=== PATIENT | female | born 1955 | race Caucasian/White ===

== ENCOUNTER 2024-03-02 11:39 | Outpatient (CLI) | payer BC, SELFPAY | END 2024-03-02 11:40 | disposition home or self-care (01) | PROVIDERS: Visit Provider Physician Assistant Medical | DX: I10 Essential (primary) hypertension (principal); Z13.220 Encounter for screening for lipoid disorders; Z13.29 Encounter for screening for other suspected endocrine disorder | CPT/HCPCS: 80053; 80061; 84443 ==

== ENCOUNTER 2024-03-25 11:07 | Outpatient (CLI) | payer BC, SELFPAY ==
--- NOTE | 2024-03-25 11:30 | CRLHL7_ITS ---
For Patients: As a result of the Century Cures Act, medical imaging exams and procedure reports are released immediately into your electronic medical record. You may view this report before your referring provider. If you have questions, please contact your health care provider. BILATERAL DIGITAL SCREENING MAMMOGRAM WITH COMPUTER-AIDED DETECTION AND TOMOSYNTHESIS CLINICAL HISTORY: Routine screening exam. COMPARISON: 04/28/18, 02/13/17, 02/12/16. TECHNIQUE: Digital mammogram in CC and MLO projections including computer-aided detection (CAD). Tomosynthesis was used in this interpretation. BREAST COMPOSITION: There are areas of scattered fibroglandular density. FINDINGS: RIGHT Breast: Focal asymmetric density upper outer quadrant 7 cm from the nipple. LEFT Breast: No suspicious findings. IMPRESSION: RIGHT breast asymmetry/mass. RECOMMENDATIONS: Additional mammographic views of the RIGHT breast including 3D spot compression CC/MLO. RIGHT breast ultrasound may also be required. BI-RADS Category 0: Incomplete: Need Additional Imaging Evaluation and/or Prior Mammograms for Comparison [facility] will contact the patient for follow-up. A lay language report of this examination will be provided to the patient. Dictated by Arden Albright MD @ 03/26/2024 12:20:06 PM hiroj/Dictated by: Arden Albright MD @ 03/26/2024 12:20:00 PM (Electronically Signed)
== END 2024-03-25 11:08 | disposition home or self-care (01) ==
LOC: MAMMO 11:08
PROVIDERS: Visit Provider Physician Assistant Medical
DX: Z12.31 Encounter for screening mammogram for malignant neoplasm of breast (principal); N63.10 Unspecified lump in the right breast, unspecified quadrant
CPT/HCPCS: 77063; 77067

== ENCOUNTER 2024-04-07 09:14 | Outpatient (RCR) | payer BC, SELFPAY | END 2024-04-20 14:39 | disposition home or self-care (01) | PROVIDERS: PCP Physician Assistant Medical; Visit Provider Orthopaedic Surgery Sports Medicine | DX: M16.11 Unilateral primary osteoarthritis, right hip (principal); Z96.641 Presence of right artificial hip joint; R52 Pain, unspecified; R53.1 Weakness; R26.9 Unspecified abnormalities of gait and mobility; R26.81 Unsteadiness on feet; Z51.89 Encounter for other specified aftercare | CPT/HCPCS: 97162; 97535 ==

== ENCOUNTER 2024-04-23 09:18 | Outpatient (CLI) | payer BC, SELFPAY ==
--- NOTE | 2024-04-23 09:15 | CRLHL7_ITS ---
For Patients: As a result of the 21st Century Cures Act, medical imaging exams and procedure reports are released immediately into your electronic medical record. You may view this report before your referring provider. If you have questions, please contact your health care provider. BILATERAL BREAST MRI WITHOUT AND WITH GADOLINIUM CLINICAL HISTORY: 68-year-old patient newly diagnosed with RIGHT breast invasive lobular carcinoma, grade II on 04/06/2024 by ultrasound-guided needle core biopsy with clip placement. Located at the RIGHT 9 o`clock location, 7 cm from the nipple and associated with 1.8 cm irregular hypoechoic mass with spiculated margins. Family history of maternal grandmother with breast cancer in her 40s. INDICATION FOR BREAST MRI: Staging of newly diagnosed breast cancer and screening of contralateral breast. Regional lymph nodes will also be assessed. COMPARISON STUDIES: Mammogram 03/25/2024. Mammogram and ultrasound 04/06/2024. CONTRAST: 23 mL Dotarem. TECHNIQUE: The patient was positioned prone using a breast coil. Multiple imaging sequences were obtained using 1-1.5 mm thick slices with no gap. The image sequences include T2-weighted STIR in the axial plane, T1-weighted nonfat-saturated gradient echo in the axial plane, pre- and post-contrast T1-weighted FLASH 3D with fat suppression in the axial plane, and T1-weighted FLASH high resolution 3D with fat suppression in the sagittal plane. Image post-processing was performed on a [employer] workstation. Complex 3D rendering including maximum intensity projections (MIPS) and volumetric renderings were obtained to optimize visualization of the extent of pathology and relationship to the nipple, skin, and chest wall. This aids in determining feasibility of breast conservation surgery. Subtraction, multiplanar reconstruction, mean curve determination, and angiogenesis mapping were also performed. The study was technically adequate. FINDINGS: Amount of Fibroglandular Tissue: Scattered fibroglandular tissue. Breast Background Enhancement: Mild RIGHT Breast: RIGHT 9 o`clock, 7 cm from the nipple: 2.7 x 1.9 x 1.8 cm heterogeneously enhancing mass. Biopsy clip artifact is noted along the anterolateral aspect of the mass. Enhancement is heterogeneous, including initial rapid uptake with delayed washout kinetics. There is enhancement along the lateral aspect of the mass extending to the skin representing post biopsy changes, which somewhat limits accurate measurement of the biopsy-proven carcinoma. LEFT Breast: No suspicious mass or non-mass enhancement. Lymph Nodes: No axillary or internal mammary lymphadenopathy. Other Findings: None. IMPRESSIONS AND RECOMMENDATIONS: 1. Unifocal biopsy-proven carcinoma RIGHT 9 o`clock, 7 cm from the nipple. 2. Carcinoma measures approximately 2.7 x 1.9 x 1.8 cm on MRI, however there is enhancement along the lateral aspect of the mass extending to the skin, representing post biopsy changes. The post biopsy enhancement somewhat limits accurate measurement of the biopsy-proven carcinoma. BI-RADS Category 6: Known biopsy-proven malignancy Dictated by Elizabeth Tam MD @ 04/26/2024 10:35:48 AM j/Dictated by: Elizabeth Tam MD @ 04/26/2024 11:11:00 AM (Electronically Signed)
== END 2024-04-23 09:19 | disposition home or self-care (01) ==
PROVIDERS: PCP Physician Assistant Medical; Visit Provider Surgery
DX: C50.812 Malignant neoplasm of overlapping sites of left female breast (principal)
CPT/HCPCS: 77049; A9575

== ENCOUNTER 2024-05-04 10:04 | Day surgery (SDC) | payer BC, SELFPAY ==
[2024-05-04] VITALS (11 sets, daily range): BP systolic 149–188; BP diastolic 70–100; PULSE 73–84; RESP 16–20; TEMP 36.3–36.6; O2SAT 96–99; BMI 43.2
[2024-05-04] MEDS: SODIUM CHLORIDE 0.9 % (FLUSH) 10 ML SYRINGE IVF (09:05)
--- NOTE | 2024-05-04 11:30 | CRLHL7_ITS ---
For Patients: As a result of the Century Cures Act, medical imaging exams and procedure reports are released immediately into your electronic medical record. You may view this report before your referring provider. If you have questions, please contact your health care provider. INDICATION: Right-sided breast cancer. TECHNIQUE: 0.5 millicuries of technetium-99m labeled filtered sulfur colloid was placed in the deep dermis of the right breast. Findings: After sterile technique and 1 cc of 1 percent lidocaine, a small injection of filtered sulfur colloid has been placed in the deep dermis of the right breast. No images have been obtained. IMPRESSION: Successful sentinel lymph node localization injection right breast. Dictated by Charlie Perez MD @ 05/05/2024 8:01:52 AM (Electronically Signed)
--- NOTE | 2024-05-04 11:34 | SUR.PREOP ---
Pt taken by nurse navigator, Fany, to breast center for wire localization placement.
--- NOTE | 2024-05-04 11:45 | CRLHL7_ITS ---
For Patients: As a result of the Cures Act, medical imaging exams and procedure reports are released immediately into your electronic medical record. You may view this report before your referring provider. If you have questions, please contact your health care provider. BREAST WIRE LOCALIZATION USING ULTRASOUND GUIDANCE CLINICAL HISTORY: RIGHT breast carcinoma. LATERALITY: RIGHT. LESION: Hypoechoic previously biopsied mass containing a clip. LOCALIZATION WIRE: [place] hookwire. TECHNIQUE: The localization wire was placed using real-time ultrasound guidance with image documentation. Cranial-caudal and medial-lateral digital mammograms were obtained after localization wire placement. CONSENT and TIME OUT: The procedure, risks, and alternatives were explained to the patient and a consent was signed. [place] Protocol was followed including pre-procedure verification that relevant information/documentation was available, reviewed and properly matched to the patient; consent accurate and complete; and equipment and supplies available. Time Out was conducted just prior to starting procedure to verify the four required elements: patient identity, correct side/site marked (if applicable), procedure, relevant images/results properly labeled and displayed (if applicable). PROCEDURE: The skin was prepped with ChloraPrep and 10 cc of 1% lidocaine was injected for local anesthesia. The localization wire was placed within or near the targeted breast lesion using ultrasound guidance. The patient tolerated the procedure well. PROXIMITY OF WIRE TO LESION: Within the lesion adjacent to the clip. IMPRESSION: Successful breast wire localization. ACR not applicable Dictated by Arden Albright MD @ 05/04/2024 12:56:58 PM hiroj/Dictated by: Arden Albright MD @ 05/04/2024 12:56:00 PM (Electronically Signed)
--- NOTE | 2024-05-04 12:29 | SUR.PREOP ---
Dr. Licea and [employer] in room to do injection
--- NOTE | 2024-05-04 12:30 | CRLHL7_ITS ---
For Patients: As a result of the Century Cures Act, medical imaging exams and procedure reports are released immediately into your electronic medical record. You may view this report before your referring provider. If you have questions, please contact your health care provider. PLEASE SEE ULTRASOUND-GUIDED RIGHT BREAST WIRE LOCALIZATION DONE SAME DAY CRL:clemente cornejo/Dictated by: Arden Albright MD @ 05/04/2024 12:20:00 PM (Electronically Signed)
--- NOTE | 2024-05-04 12:34 | W.PM.H&PU ---
History & Physical Update History & Physical Update H&P Reviewed and patient assessed: No changes noted
--- NOTE | 2024-05-04 13:06 | P.GSOP_ITS ---
Operative Note Date of procedure: 05/04/24 Pre-op diagnosis: 1. Right breast invasive lobular carcinoma, ER/OR positive and HER2 negative. Post-op diagnosis: Same Type of Procedure: 1. Wire localized right lumpectomy. 2. Right sentinel lymph node biopsy. Indications: 68-year-old female was seen in clinic for evaluation of a new diagnosis of right breast invasive lobular carcinoma. Patient was found to have a spiculated hypoechoic mass in the right breast at 9:00 7 cm from the nipple that was measuring 1.8 x 1.2 cm. Patient's pathology came back as invasive lobular carcinoma, grade 2 of 3 with no angiolymphatic invasion, ER/OR positive and HER2 negative, Ki I 67 12%. Patient also underwent bilateral breast MRI that did not show any suspicious lymphadenopathy in bilateral axilla and no additional masses were noted. On clinical exam patient had pendulous breasts. In the right breast at 9:00 there was resolving post biopsy ecchymosis. With the patient lying on the procedure table with the arm lifted I was able to see the skin puckering at 9:00 and this was noted by the patient prior to her biopsy. Given patient's clinical history, her comorbidities, and the exam findings, surgical options were discussed with the patient, and she select to proceed with a right lumpectomy and right sentinel lymph node biopsy. The procedures were discussed with the patient in detail. The risks associated procedure including infection, bleeding, lymphedema, and the need for additional procedures were all discussed with the patient, and she agreed to proceed. Procedure Description: After discussing the risks and benefits of the procedure, the patient signed informed consent.? The operative site was marked and the patient was brought to the operating room and placed on the operating table in supine position.? Care was taken to pad the patient's pressure points.?? The patient was then intubated by anesthesia.?? The operative site was then prepped and draped in the usual sterile fashion.? A time-out was then performed. Pre-operative mammographic films taken after wire localization were reviewed. The mixture of Lidocaine and Marcaine was used as local anesthetic and was injected at the site of the incision. The lumpectomy was performed by making a?horizontal elliptical skin incision in the?right lateral breast at 9:00. The ellipse of skin included the wire skin entrance and the skin that was puckered from underlining mass. The breast tissue around the wire was then excised in a cylinder like fashion following the course of the wire using cautery.? This was done with frequent palpation of the wire.? The specimen was then excised making sure that the wire was still in the specimen. Margins of the specimen were inked and the specimen was then sent to mammography first to confirm presence of the wire and the clip and to pathology afterwards for gross margins. Specimen mammography showed presence of the tumor and clip in the specimen. Pathologist reviewed the specimen and the tumor and the biopsy clip was identified in the surgical specimen.? The inferior margin was close, and additional excision of this margin was recommended. This was done with cautery. This new inferior margin was sent to pathology for permanent section. While the lumpectomy specimen was evaluated with pathology, we proceeded with right axillary lymph node biopsy. Three ml (milliliters) of Lymphazurin blue was personally injected by oh near the right nipple for sentinel lymph node identification after patient was intubated by Anesthesia. A Bhupendra counter was brought onto the field in the right axilla to identify the best area for the sentinel node biopsy. An oblique skin incision was then made over that area. Subcutaneous tissues were dissected with electrocautery. A green lymph node was identified and appeared to have radioactive signal. This had a signal of 1810. This was excised with cautery. The specimen contained 2 palpable lymph nodes. Those 2 lymph nodes were with Metzenbaum scissors. One lymph node did not have a signal. The lymph node with a signal of 1810 was sent to pathology as the sentinel node #1. The lymphoid tissue without radioactive signal was sent to pathology as additional right axillary maurizio tissue. Axillary maurizio tis misael was examined again, and additional second sentinel lymph node was identified. This was excised with cautery. This had a signal of 236. This was sent to pathology as sentinel lymph node #2. The right axilla was then examined with the Bhupendra counter again and and no additional significant signal was identified. Hemostasis was achieved with cautery. This incision was then closed in layers with 3-0 Vicryl interrupted stitches to re-approximate subcutaneous layer and 4-0 Monocryl subcuticular stitch to close skin. The right lumpectomy cavity was then examined and hemostasis achieved with cautery. Vascular clips were then placed into the lumpectomy cavity for marking of the borders of the lumpectomy cavity. Additional local anesthetic was injected at the surgical site. Breast tissue was then reapproximated with interrupted 2-0 Vicryl sutures. Interrupted subdermal stitches were placed with 3-0 Vicryl as well and skin was closed with 4-0 Monocryl subcuticular stitch. Steristrips and sterile dressings were applied to both incision. At the end of the operation, all sponge, instrument, and needle counts were correct. Patient tolerated the procedure well and was transferred to same-day surgery in stable condition. Findings: Right lumpectomy contained breast cancer and biopsy clip, inferior margin was close and a new inferior margin was reexcised. Two sentinel lymph nodes were identified and excised. Anesthesia: GETA Surgeon: Lynne Licea MD Estimated blood loss (mL): 10 Additional Specimen Information: 1. Right breast lumpectomy. 2. Right sentinel lymph node 1. 3. Right sentinel lymph node 2. 4. Additional right axillary maurizio tissue. 5. New right breast inferior margin. Condition: stable Disposition: PACU [place] Node Biopsy for Breast Cancer Operation Performed with Curative Intent: Yes Tracers used to Identify sentinel nodes in the upfront surgery (non-neoadjuvant) setting: Dye and Radioactive Tracer Tracers used to identify sentinel nodes in the neoadjuvant setting: N/A All nodes (colored or non-colored) present at the end of a dye filled lymphatic channel were removed: Yes All significantly radioactive nodes were removed: Yes All palpably suspicious nodes were removed: Not Applicable Biopsy proven positive nodes marked with clips prior to chemotherapy were identified and removed: Not Applicable
[2024-05-04] MEDS: 0.9 % SODIUM CHLORIDE 500 ML 500 ML 100 ML IV (13:40)
[2024-05-04] MEDS: CEFAZOLIN 2 GM INJ IVP (13:56)
[2024-05-04] MEDS: ISOSULFAN BLUE 5 ML VIAL INJECTION (14:10)
--- NOTE | 2024-05-04 14:31 | W.ANESCHARGE ---
Anesthesia Charges Start Date/Time Anesthesia Start Date: 05/04/24 Anesthesia Start Time: 13:48 Stop Date/Time Anesthesia Stop Date: 05/04/24 Anesthesia Stop Time: 15:38
--- NOTE | 2024-05-04 14:33 | CRLHL7_ITS ---
For Patients: As a result of the Cures Act, medical imaging exams and procedure reports are released immediately into your electronic medical record. You may view this report before your referring provider. If you have questions, please contact your health care provider. RIGHT BREAST SPECIMEN RADIOGRAPH CLINICAL HISTORY: RIGHT breast cancer. COMPARISON: 03/25/2024, 04/23/2024. FINDINGS: Three views of the RIGHT breast specimen submitted. The specimen contains the biopsied mass, the localization wire and the biopsy clip. IMPRESSION: Specimen contains the biopsied mass, localization wire and biopsy clip. ACR not applicable Dictated by Arden Albright MD @ 05/05/2024 10:41:46 AM jj/Dictated by: Arden Albright MD @ 05/05/2024 10:41:00 AM (Electronically Signed)
[2024-05-04] MEDS: BUPIVACAINE 0.25% 30 ML INJECTION (15:23)
[2024-05-04] MEDS: LIDOCAINE 1%-EPI 1:100,000 20 ML INFILTRATI (15:23)
--- NOTE | 2024-05-04 15:40 | W.ANESCHARGE ---
Anesthesia Charges Start Date/Time Anesthesia Start Date: 05/04/24 Anesthesia Start Time: 13:48 Stop Date/Time Anesthesia Stop Date: 05/04/24 Anesthesia Stop Time: 15:38
--- NOTE | 2024-05-04 15:43 | W.ANESCHARGE ---
Anesthesia Charges Start Date/Time Anesthesia Start Date: 05/04/24 Anesthesia Start Time: 13:48 Stop Date/Time Anesthesia Stop Date: 05/04/24 Anesthesia Stop Time: 15:38
[2024-05-04] MEDS: HYDROCODONE-ACETAMIN 5-325 MG 1 TAB PO (16:27)
== END 2024-05-04 17:07 | disposition home or self-care (01) ==
PROVIDERS: PCP Physician Assistant Medical; Visit Provider Surgery
PROC: (CPT 19125; principal; 2024-05-04 13:15)
PROC: (CPT 19125; 2024-05-04 13:15)
PROC: (CPT 19125; 2024-05-04 13:15)
DX: C50.811 Malignant neoplasm of overlapping sites of right female breast (principal); Z17.21 Progesterone receptor positive status; Z17.0 Estrogen receptor positive status [ER+]
CPT/HCPCS: 19125; 38500; 00400; 01610; 19285; 38792; 77065; 88305; 88307; A9270; A9541; C1769; J0330; J0665; J0690; J1100; J2405; J2704; J3010; J7030

== ENCOUNTER 2024-06-04 09:02 | Outpatient (RCR) | payer BC, SELFPAY ==
--- NOTE | 2024-06-04 10:29 | PT.OPE ---
PT [place] Outpatient Eval PT [facility] Outpatient Eval Start: 06/04/24 07:51 Freq: Status: Active Protocol: Document 06/04/24 07:51 ENM (Rec: 06/04/24 09:53 ENM [id number]) E-signed By Naomie Booker, DPT Physical Therapy Outpatient Evaluation Insurance Information Recert Due Date 09/02/24 Insurance Name [employer] Medical Diagnosis malignant neoplasm of unspecified site of right female breast Treating Diagnosis impaired posture, decreased shoulder ROM, soft tissue tightness of breast Referring MD Licea Subjective Subjective Patient presents to PT after right lumpectomy and SLND for invasive lobular carcinoma, ER /LA positive HER2 negative DOS 05/04/24. Two lymph nodes were taken out which they found one to be microscopic. The right side was really sore at first but now she is feeling ok, every once in a while will have a twinge. She was supposed to have her right hip replaced on Apr 21 but this has been delayed due to breast cancer treatment. She hadn't been to the doctor for a long time then had a routine mammogram where they found her breast cancer. Is really struggling with walking due to pain in her hip. Plan is to have radiation starting next Friday for ~3 weeks then the hip replacement on 07/05/24 . After that will have endocrine therapy. She is very emotional about her situation . PMHx: arthritis, HTN Pain Comments no pain at breast significant pain at her right hip Current Work Status [employer] Objective Other/Pertinent Objective AROM in standing Flexion L 148 R 150 Abduction L 158 R 145 IR: L T10 R T11 ER: T2 B Joint mobility: posterior glide limited B Posture: increased thoracic kyphosis, protracted shoulders Palpation: tissue restriction minimal at axillary incision, mild at breast incision Observation/swelling: no bruising or significant swelling two incision present one in axilla that has fully healed, another incision at inferior lateral breast that is still healing with steri strips still in place Cording - Functional Test Performed & Score Will assess SPADI at next visit Assessment Assessment/Impression Patient presents to PT for her 4 week after right lumpectomy and SLND to assess for post- operative impairments that will benefit from continuation of skilled care. Patient does not have pre-op baseline measurements for comparison. They have been doing fine after right lumpectomy and have no concerns. They are primarily limited by right hip pain as their joint replacement was pushed back to July 05 due to breast cancer diagnosis. She currently presents with mild limitations in shoulder ROM and mild soft tissue restrictions at breast incision that will benefit from skilled care, including therapeutic exercise, manual therapy, neuromuscular education, self-care training and HEP training, in order to return her to her prior level of function and comfort. Patient starts radiation on Friday and is overwhelmed with all her appointments. Since patient is not having any limitations and has no questions/concerns PT will be put on hold until after radiation has been completed. At that time rehab will focus on addressing soft tissue restrictions from radiation as well as post op hip replacement protocol. Primary Functional Limitations no significant limitations at this time Plan of Care Rehabilitation Potential Good Physical Therapy Goals In 6-8 visits: 1. Restore shoulder AROM, as measured at pre-operative evaluation, after initial recovery period to improve 1 and 2-handed functional activity ability. (This will reduce during radiation therapy inflammatory phase, if needed.) 2. Restore functional scoring using SPADI assessment tool to pre-operative amounts to ensure full return to baseline function. 3. Restore full upright posture per patient perception or compared to pre-operative findings. Coordination/Communication With Referral Source Treatment Plan/Direct Interventions Ice/Cold/Vasopneumatic,Joint Mobilization,Manual Therapy, Neuromuscular Re-ed,Self-Care/ Home Management,Therapeutic Activities,Therapeutic Exercises Frequency/Duration 1-2x per week for 3-4 weeks after radiation Patient Will Be Discharged From Therapy Completion of LTG(s), Independent w/HEP Evaluation Billing Untimed Code Treatment Minutes 30 Complexity Low Certification Information Initial Certification Date 06/04/24 Ending Certification Date 09/02/24 Provider Signature Required Yes Provider Signature Shows Agreement With POC & Medical Necessity Physician NPI Number Write NPI# Here Physician Comment/Change : Physician Signature & Date Requested Please Sign/Date Here
== END 2024-09-27 14:06 | disposition home or self-care (01) ==
PROVIDERS: PCP Physician Assistant Medical; Visit Provider Surgery
DX: C50.911 Malignant neoplasm of unspecified site of right female breast (principal); M16.11 Unilateral primary osteoarthritis, right hip; M25.551 Pain in right hip; M25.561 Pain in right knee; Z74.09 Other reduced mobility; R29.3 Abnormal posture; N64.4 Mastodynia; Z51.89 Encounter for other specified aftercare
CPT/HCPCS: 97110; 97161

== ENCOUNTER 2024-06-09 15:09 | Outpatient (CLI) | payer BC, SELFPAY ==
--- NOTE | 2024-06-09 15:30 | CRLHL7_ITS ---
For Patients: As a result of the Century Cures Act, medical imaging exams and procedure reports are released immediately into your electronic medical record. You may view this report before your referring provider. If you have questions, please contact your health care provider. DXA BONE MINERAL DENSITY STUDY Current height (in): 64.5. Weight (lb): 260.0. Menopause age: 56. Ethnicity: White. Reason for exam: Malignant neoplasm of unspecified site of right. 1. Have you had a previous hip or vertebral fracture? No. 2. Have you had any fractures during your adult life which did not result from significant trauma (e.g., auto accident)? No. 3. Did either of your parents have a hip fracture? No. 4. Do you smoke? No. 5. Have you ever taken Glucocorticoids? No. 6. Do you have rheumatoid arthritis? No. 7. Do you have secondary osteoporosis? No. 8. Do you drink 3 or more alcoholic drinks per day? No. 9. Are you being treated for osteoporosis? No. 10. Have you ever taken any of the following medications: Actonel, Evista, Fosamax, Miacalcin, Reclast, Boniva, Forteo, HRT (i.e. estrogen/hormone therapy), Protelos, Prolia, Vitamin D, Calcium, other ??? please specify. ANSWER: Yes, vitamin D, calcium. 11. Do you have any of the following medical conditions: Anorexia or bulimia, asthma or emphysema, end stage renal disease, hyperparathyroidism, any seizure disorders, cancer, inflammatory bowel diseases, hysterectomy, other ??? please specify. ANSWER: Yes, cancer, hysterectomy. 12. What was your maximum height (inches)? 65. 13. Do you perform weight bearing exercise regularly? No. 14. Do you regularly consume dairy products? Yes. 15. Do you drink caffeinated beverages? Yes. 16. At what age did your period start? 12. 17. Are you premenopausal? No. 18. How many full-term pregnancies have you had? 2. 19. Have you ever missed your period for more than 6 months in a row (not including or menopause)? No. TECHNIQUE: Bone mineral density study was performed using the [employer]. FINDINGS: The results of the study expressed as bone mineral density (BMD) are as follows: Lumbar spine L1 to L4: BMD: 1.033 g/cm2. T-score: -0.1. Z-score: 1.8 Neck Left: BMD: 0.700 g/cm2. T-score: -1.3. Z-score: 0.3 Right: BMD: 0.907 g/cm2. T-score: 0.5. Z-score: 2.2 Total Left: BMD: 0.945 g/cm2. T-score: 0.0. Z-score: 1.4 Right: BMD: 1.022 g/cm2. T-score: 0.7. Z-score: 2.0 IMPRESSION: Osteopenia. FRAX 10-year Fracture Risk Major Osteoporotic Fracture: 7.8 percent Hip Fracture: 0.7 percent Reported Risk Factors: [place] () Neck BMD = 0.700, BMI = 43.9 Arden Albright M.D. Diagnostic Radiologist [email or web address] Transcribed: 10:20 am DW/Dictated by: Arden Albright MD @ 06/10/2024 9:49:00 AM (Electronically Signed)
== END 2024-06-09 15:10 | disposition home or self-care (01) ==
LOC: RAD 15:11
PROVIDERS: PCP Physician Assistant Medical; Visit Provider Internal Medicine Hematology & Oncology
DX: C50.911 Malignant neoplasm of unspecified site of right female breast (principal); M85.89 Other specified disorders of bone density and structure, multiple sites; Z17.0 Estrogen receptor positive status [ER+]
CPT/HCPCS: 77080

== ENCOUNTER 2024-07-05 09:24 | Day surgery (SDC) | payer BC, SELFPAY ==
[2024-07-05] VITALS (24 sets, daily range): BP systolic 114–190; BP diastolic 72–100; PULSE 59–92; RESP 12–21; TEMP 36.1–36.9; O2SAT 94–100; BMI 43.4
--- NOTE | 2024-07-05 10:16 | W.PM.H&PU ---
History & Physical Update History & Physical Update H&P Reviewed and patient assessed: No changes noted
[2024-07-05] MEDS: SODIUM CHLORIDE 0.9 % (FLUSH) 10 ML SYRINGE IVF (10:30)
[2024-07-05] MEDS: LACTATED RINGERS 1000 ML 1,000 ML 100 ML IV (10:45)
[2024-07-05] MEDS: ACETAMINOPHEN 500 MG TABLET 1000 MG PO ×3 (10:46→22:45)
[2024-07-05] MEDS: OXYCODONE (CR) 10 MG TAB.ER.12H PO (10:47)
--- NOTE | 2024-07-05 10:54 | P.NB_ITS ---
Nerve Block Nerve Block Time Seen by Provider: 11:07 Date Seen: 07/05/24 Type of block requested by surgeon for post-operative analgesia: DAVID/LFCN Side: right Time out performed: Yes Verification of patient name: Yes Verification of date of : Yes Site marking: site marked Name of person performing procedure: Sam Continuous monitoring Was continuous monitoring of O2 sat, B/P, patient monitor, recorded every 15 minutes?: Yes Procedure Checklist: sterile prep, needles and gloves Ultrasound guided. Images saved: Yes Medications given in 5ml increments after negative aspiration: Ropivicaine %: 0.5 mL: 30 Needle gauge: 20 Precedex (mcg): 25 Patient tolerated procedure well: Yes Additional comments: Needle noted below psoas tendon needle noted adjacent to LFCN Block Charges Block Charge (with Pro Fee): Other Periph Nerve Block Use of Ultrasound Machine for Block: Yes- US Guidance/pain block
--- NOTE | 2024-07-05 10:54 | P.ANES_ITS ---
Anesthesia Charges Start Date/Time Anesthesia Start Date: 07/05/24 Anesthesia Start Time: 11:52 Stop Date/Time Anesthesia Stop Date: 07/05/24 Anesthesia Stop Time: 14:06 Coding CPT Codes CPT Codes: ANESTH HIP ARTHROPLASTY - 61104 ([id number]) P3 - PATIENT W/SEVERE SYS DISEASE, QK - WORKFORCE DEVELOPMENT ASSISTANT 2-4 CNCRNT ANES PROC, QX - CLINICAL EDUCATION COORDINATOR SVC W/ MD MED DIRECTION
--- NOTE | 2024-07-05 10:54 | W.ANESCHARGE ---
Anesthesia Charges Start Date/Time Anesthesia Start Date: 07/05/24 Anesthesia Start Time: 11:52 Stop Date/Time Anesthesia Stop Date: 07/05/24 Anesthesia Stop Time: 14:06 Coding CPT Codes CPT Codes: ANESTH HIP ARTHROPLASTY - 63724 ([id number]) P3 - PATIENT W/SEVERE SYS DISEASE, QK - CHRISTMAS [employer] F[employer] WORKER 2-4 CNCRNT ANES PROC, QX - ANIMAL SHELTER SUPERVISOR SVC W/ MD MED DIRECTION
[2024-07-05] MEDS: MIDAZOLAM HCL 1 MG/ML inj IVP (11:07)
[2024-07-05] MEDS: fentaNYL 100 MCG/2 ML inj IVP (11:07)
--- NOTE | 2024-07-05 11:23 | SUR.PREOP ---
TIME?OUT:?right hip, 1105 PT/RN/MDA?VERIFICATION?OF?SURGICAL?SITE,?PROCEDURE,?AND?CONSENT OBTAINED?PRIOR?TO?INVASIVE?PROCEDURE.
--- NOTE | 2024-07-05 11:30 | CRLHL7_ITS ---
For Patients: As a result of the Century Cures Act, medical imaging exams and procedure reports are released immediately into your electronic medical record. You may view this report before your referring provider. If you have questions, please contact your health care provider. Indication: Right total hip replacement. Technique: Single fluoroscopic intraoperative image was submitted for review right hip. 28.3 seconds of intraoperative fluoroscopy was performed. Comparison: None available. Findings/impression : Intraoperative image demonstrates a right total hip prosthesis with anatomic alignment on single view. No displaced periprosthetic fracture is seen. Please refer to operative report for additional details. Dictated by Maryam Witt MD @ 07/06/2024 9:54:50 AM (Electronically Signed)
[2024-07-05] MEDS: CEFAZOLIN 2 GM in 0.9 % SODIUM CHLORIDE Mini-bag 100 ML IVPB (12:05)
--- NOTE | 2024-07-05 12:10 | CRLHL7_ITS ---
For Patients: As a result of the Century Cures Act, medical imaging exams and procedure reports are released immediately into your electronic medical record. You may view this report before your referring provider. If you have questions, please contact your health care provider. Indication: Postop Technique: AP hip centered pelvis and lateral right hip Findings/Impression: Hardware from a right total hip arthroplasty is in satisfactory position. Bone alignment is normal. No sign of acute fracture. Postop changes are within normal limits. Dictated by Arden Albright MD @ 07/06/2024 11:55:36 AM (Electronically Signed)
[2024-07-05] MEDS: TRANEXAMIC ACID 100 MG/ML INJ 1000 MG IV (12:12)
--- NOTE | 2024-07-05 13:31 | P.ORPRC_ITS ---
Procedure Note Date of procedure: 07/05/24 Procedure: PREOPERATIVE DIAGNOSIS: 1. Right hip osteoarthritis, severe, primary 2. Morbid obesity (BMI 43.5) POSTOPERATIVE DIAGNOSIS: 1. Right hip osteoarthritis, severe, primary 2. Morbid obesity (BMI 43.5) PROCEDURE: 1. Right total hip arthroplasty-anterior approach - of note, given her morbid obesity (BMI 43.5) there was 33% added difficulty and time for this case. This necessitated increased length of retractors, increased dissection time and depth, increased number of assistants, and modification to standard instrumentation to allow the case to be accomplished safely. 2. 21072 - intraoperative fluoroscopy up to 1 hour. SURGEON: Miguel Fowler MD. SUPERVISOR BOTTLE HOUSE CLEANERS: Eleno Lyons PA-C; KRISTA Valentin - Of note, a skilled press assistant and feeder was critical for this case to aid in patient positioning, tissue retraction, limb manipulation/positioning, and closure. ANESTHESIA: General endotracheal anesthetic EBL: 500 mL IMPLANTS: DePuy J&J uncemented total hip [place] cup size 52, hole eliminator, +4 neutral liner Actis stem, standard offset, size 5 +5 mm ceramic 36 mm head COMPLICATIONS: None evident INDICATIONS: The patient is a pleasant 68-year-old female who has experienced severe right hip pain and difficulty bearing weight. Workup included x-rays which revealed severe osteoarthrosis in the hip. Given the deformity, the dysfunction, and the pain, as well as the failure of nonoperative management, recommendation was made for surgery. FINDINGS: Full-thickness chondral loss diffusely throughout the femoral head and acetabulum. Large osteophytes around the femoral head/neck junction and perimeter of the acetabulum. Large effusion upon entering joint. Significant synovitis seen throughout the hip capsule. DESCRIPTION OF PROCEDURE: Following a thorough discussion of risks, benefits, and alternatives consent was obtained and the right hip was marked. The patient was brought to the operating room and placed supine on the operating table. Induction of anesthesia was undertaken. 2 g IV Ancef and 1 g tranexamic acid was administered within 1 hr of incision preoperatively. Proper time-out was performed identifying proper patient, site, procedure. The operative extremity was prepped and draped in the appropriate sterile fashion using ChloraPrep after the patient was positioned on the [place] table with head in neutral alignment and all bony prominences well padded. C-arm fluoroscopic imaging was utilized to confirm proper pelvis rotation and position, and to get true AP films of both the contralateral left, and the affected right hip. This is for comparison. A longitudinal incision was made starting approximately 1 cm distal to the ASIS, and 3-4 cm lateral. The incision was extended distally aiming toward the lateral border the patella. Sharp incision through skin and bovie cautery through the subcutaneous tissue allowed identification of the TFL fascia. This was sharply divided, and the fascia bluntly released from the muscle fibers as we dissected medial. Upon coming to the medial border, we were able to retract the TFL laterally, and penetrated the deeper fascia and identify the crossing circumflex vessels. These were ligated/cauterized. The rectus was elevated from the capsule, and retractors placed laterally and medially along the femoral neck to help with visualization of the capsule. We then performed an inverted T capsulotomy. The capsule was tagged for later repair. Retractors were placed inside the capsule. The femoral neck was visualized after releasing medially down to the lesser trochanter, along the saddle laterally, and up onto the acetabulum. The femoral neck cut was made in line with our preoperative templating. The head was removed in a single piece, and sized. We turned our attention to acetabular preparation. Initially, the labrum was resected from around the perimeter, the pulvinar was excised, allowing us to visualize the false wall. We started the reaming with a 43 mm reamer. This was medialized down to the true wall. We then enlarged our reamers sequentially up to one size less than the selected cup size. We trialed at the same size and found it to have an excellent fit. The selected cup was then opened, inserted, and impacted in line with the goal of 40? of abduction, and 20-25? of anteversion. This was confirmed on C-arm fluoroscopic imaging to be in the appropriate/goal position. Once the cup was placed we placed a hole eliminator and a liner consistent with preop planning. Attention was turned to the femoral preparation. The limb was extended, externally rotated, and adducted. The posteromedial capsule was released, as retractors were placed allowing excellent access to the proximal femur. Initially a spreader box operator was followed by canal finder followed by various broaches. We broached sequentially up to the size noted above, found it to have excellent rotational control, and trialing various heads and necks, revealed that appropriate neck offset, and the above noted head size provided the greatest stability, and gnosticism of length, and offset. C-arm fluoroscopic imaging confirmed position of the stem, as well as leg lengths, which were compared with the pre procedure all fluoroscopic images. Trial implants were removed, the real femoral stem inserted, as was the appropriate head. After reducing, the leg was placed through range of motion and stability was confirmed anterior, posterior, and lateral. A 3 min Betadine soak was then performed, and thorough irrigation with normal saline followed. Closure of the capsule was performed with #1 PDS. Bleeding was confirmed to be controlled at this stage, and the TFL fascia was closed with #0 strata fix. Subcutaneous, and subcuticular closure was performed with 2-0 Vicryl and 4-0 Monocryl, respectively. Dressings were applied, and the patient was awoken from anesthesia and transferred the PACU in stable condition. A skilled press assistant and feeder was critical for this case to aid in patient positioning, tissue retraction, acetabular and proximal femoral exposure, limb manipulation/positioning, dislocation/relocation, patient safety, and closure. Again, given her morbid obesity (BMI 43.5) there was 33% added difficulty and time for this case. This necessitated increased length of retractors, increased dissection time and depth, increased number of assistants, and modification to standard instrumentation to allow the case to be accomplished safely. PLAN: 1. Weight bear as tolerated operative extremity. 2. 23 hr perioperative antibiotics. 3. Ice. 4. PT/OT consults for ambulation assistance/mobility education. 5. Social work consult for discharge planning. 6. DVT prophylaxis with at SCDs and Xarelto x5 days followed by aspirin for a total of 1 month or Xarelto for a total of 1 month-will welcome hospitalist recommendation regarding length of use for Xarelto.
--- NOTE | 2024-07-05 14:11 | P.ANES_ITS ---
Anesthesia Charges Start Date/Time Anesthesia Start Date: 07/05/24 Anesthesia Start Time: 11:52 Stop Date/Time Anesthesia Stop Date: 07/05/24 Anesthesia Stop Time: 14:06 Coding CPT Codes CPT Codes: ANESTH HIP ARTHROPLASTY - 55830 ([id number]) P3 - PATIENT W/SEVERE SYS DISEASE, QK - HOME ASSESSMENT NURSE 2-4 CNCRNT ANES PROC, QX - MANAGER CCU SVC W/ MD MED DIRECTION
--- NOTE | 2024-07-05 14:11 | W.ANESCHARGE ---
Anesthesia Charges Start Date/Time Anesthesia Start Date: 07/05/24 Anesthesia Start Time: 11:52 Stop Date/Time Anesthesia Stop Date: 07/05/24 Anesthesia Stop Time: 14:06 Coding CPT Codes CPT Codes: ANESTH HIP ARTHROPLASTY - 96200 ([id number]) P3 - PATIENT W/SEVERE SYS DISEASE, QK - STREET LIGHT SERVICER SUPERVISOR 2-4 CNCRNT ANES PROC, QX - ENAMEL BURNER SVC W/ MD MED DIRECTION
--- NOTE | 2024-07-05 14:41 | SUR.PHASEI ---
patient met discharge critria per anesthesia
--- NOTE | 2024-07-05 14:42 | SUR.PHASEI ---
patient met discharge criteria per anesthesia
--- NOTE | 2024-07-05 14:49 | P.IMCN_ITS ---
Date of Consult Consult date: 07/05/24 Primary Care Provider: Josias Vazquez PA-C Consult Narrative Narrative: Jazmyne Wilson is a 68 year old female w/ PMHx of HTN, OA, obesity and hx of Rt breast cancer S/P lumpectomy and radiation who presents for elective right total hip arthroplasty on July 05. Pt has Hx of severe Right hip osteoarthritis & failure of nonoperative management. EBL: 500cc. Patient states that her pain was controlled after surgery with pain medication. She was able to urinate. N.B patient was diagnosed and treated for right breast cancer in April 2024, her last radiation session was last Friday. Review of Systems Status of ROS: Reports: 6 or more systems reviewed and unremarkable except as noted in History and below [facility] Surgical History (Updated 07/05/24 @ 20:07 by Jazmin Olguin MD) History of arthroplasty of right hip (07/05/24) ?Z96.641 - Presence of right artificial hip joint (ICD-10) S/P lumpectomy, right breast ?Z98.890 - Other specified postprocedural states (ICD-10) History of sentinel lymph node dissection ?Z98.890 - Other specified postprocedural states (ICD-10) History of appendectomy ?Z90.49 - Acquired absence of other specified parts of digestive tract (ICD- 10) History of hysterectomy ?Z90.710 - Acquired absence of both cervix and uterus (ICD-10) Family History Grandmother Skin cancer Social History Narrative: outreach worker at [employer] What is your current living situation?: I presently have a place to live Problems where you live: no known problems In the past 12 months, utilities in danger of being shut off: no In past 12 months, lack of transportation kept you from medical appts, meetings, work, or getting things needed for daily living: no In the past 12 mos, have been you worried that your food would run out before you had money to buy more?: never true In the past 12 mos, the food you bought just didn't last and you didn't have money to buy more?: never true Highest level of school completed/degree received: decline to answer Smoking Status: Never smoker Do you use any of these nicotine containing products: None Second hand tobacco smoke exposure: No How often do you have a drink containing alcohol: never How often do you have six or more drinks on one occasion: Never AUDIT-C Alcohol total score: 0 Non-prescribed substance use: denies use Caffeine: No How often does anyone, including family, friends and others, physically hurt you : never How often does anyone, including family, friends and others, insult or talk down to you: never How often does anyone, including family, friends and others, threaten you with harm: never How often does anyone, including family, friends and others, scream or curse at you: never Are you using contraception or practicing any form of control: No (menopause) Meds Home Medications and Allergies Allergies Allergy/AdvReac Type Severity Reaction Status Date / Time No Known Drug Allergies Allergy Verified 07/05/24 09:34 Exam Narrative: Exam Narrative: Physical exam GENERAL: Comfortable, no acute distress. HEAD AND NECK: Atraumatic, normocephalic CARDIOVASCULAR: RRR. Normal S1, S2. No murmurs. RESPIRATORY: Clear to auscultation B/L. Good air entry B/L. No wheezes or rhonchi. NEUROLOGY: Alert, awake, oriented X 3. Normal speech. PSYCH: Normal mood, normal affect. Const: Vital Signs, click to edit/add: Vital Signs - 24 hr 07/05/24 10:02 07/05/24 11:07 07/05/24 11:15 Temperature 98.5 F Pulse Rate 79 84 73 Respiratory Rate 20 20 20 Blood Pressure 148/85 H 190/94 H 161/92 H Pulse Oximetry 97 98 98 Oxygen Delivery Me thod Room Air Nasal Cannula Nasal Cannula Oxygen Flow Rate 2 2 07/05/24 11:22 07/05/24 14:03 07/05/24 14:05 Temperature 98.4 F 98.4 F Pulse Rate 75 70 66 Respiratory Rate 20 12 21 Blood Pressure 165/90 H 114/76 142/80 H Pulse Oximetry 98 95 95 Oxygen Delivery Me thod Nasal Cannula Room Air Room Air Oxygen Flow Rate 2 07/05/24 14:10 07/05/24 14:15 07/05/24 14:20 Temperature 98.4 F 98.4 F 98.4 F Pulse Rate 70 67 73 Respiratory Rate 12 12 12 Blood Pressure 134/79 144/98 H 163/100 H Pulse Oximetry 94 97 97 Oxygen Delivery Me thod Room Air Room Air Room Air Oxygen Flow Rate 07/05/24 14:25 07/05/24 14:30 Temperature 98.4 F 98.4 F Pulse Rate 65 59 L Respiratory Rate 18 12 Blood Pressure 156/96 H 163/72 H Pulse Oximetry 97 99 Oxygen Delivery Me thod Room Air Room Air Oxygen Flow Rate Assessment and Plan Assessment and plan (1) Status post right hip replacement: Problem comment: -Start early ambulation with physical therapy. -Start DVT prophylaxis with Xarelto x5 days followed by aspirin for a total of 1 month or Xarelto for a total of 1 month. Patient with BMI above 40 (Obesity may increase the risk of DVT by causing venous stasis and altering the coagulation s ystem) and a recent history of breast cancer Tx (increased inflammation d/t injury) might favor Xarelto for 1 month unless patient has increased risk of bleeding. -Monitor for urine output postoperatively, bladder scan if needed. -Encourage incentive spirometry. Status: Acute (2) Morbid obesity: Problem comment: BMI 43.5 Status: Acute (3) Primary osteoarthritis of right hip: Problem comment: Status post right replacement Status: Acute (4) HTN (hypertension): Problem comment: Home medication include lisinopril 20, hydralazine 10 mg b.i.d., amlodipine 5 Status: Acute (5) Invasive lobular carcinoma of breast, stage 1: Problem comment: -patient was diagnosed and treated for right breast cancer in April 2024. -status post lumpectomy and radiation, her last radiation session was last Friday. Status: Acute Total Time Spent Total Time Spent: Time spent: Today I spent 75 minutes seeing the patient, reviewing Expanse and EPIC notes/diagnostics, discussing the care plan with our care time that includes social work, PT/OT, pharmacy, RT, [place] [facility] and documenting my impressions and plan in the medical record.
[2024-07-05] MEDS: HYDROmorphone 0.5 mg/0.5 ml inj IVP (14:50)
[2024-07-05] MEDS: LACTATED RINGERS 1000 ML 1,000 ML 75 ML IV (15:13)
[2024-07-05] MEDS: OXYCODONE 5 MG TABLET PO (20:29)
[2024-07-05] MEDS: HYDRALAZINE 10 MG TABLET PO (20:30)
[2024-07-05] MEDS: SENNOSIDES 1 TAB TABLET 2 TAB PO (20:31)
[2024-07-05] MEDS: AMLODIPINE 5 MG TABLET PO (20:31)
--- NOTE | 2024-07-05 23:36 | PC.NURSE ---
Pt alert, oriented and vitally stable. Pain rated as high as 7/10 after movement, prn oxy given, pt stated improvement. Dressing C/D/I. Pt moves via 1 a with walker, tolerates well. Pt on regular diet and tolerates well. Pt emotional about situation, staff reassured, pt mood improved. Pt in bed, appears to be resting, call light within reach.?
[2024-07-06 00:10] VITALS: BP 138/72; RESP 16; RESP 18; TEMP 36.9; O2SAT 94
[2024-07-06] MEDS: CEFAZOLIN 2 GM in 0.9 % SODIUM CHLORIDE Mini-bag 100 ML IVPB ×2 (00:25→08:24)
[2024-07-06] MEDS: OXYCODONE 5 MG TABLET PO ×3 (05:38→10:16)
[2024-07-06] MEDS: ACETAMINOPHEN 500 MG TABLET 1000 MG PO (05:38)
[2024-07-06 06:00] VITALS: BP 127/55; RESP 18; TEMP 37; O2SAT 93
[2024-07-06 06:36] LABS: Basophils Absolute Auto 0.01 K/uL (0.00-0.30); Basophils Percent Auto 0.1 % (0.0-3.0); Eosinophils Absolute Auto 0.01 K/uL (0.00-0.50); Eosinophils Percent Auto 0.1 % (0.0-7.0); Hematocrit 36.1 % (33.0-51.0); Hemoglobin* 11.4 gm/dL (12.0-16.0); Lymphocytes Percent Auto 13.6 % (20-44); Mean Corpuscular HGB Conc 32 gm/dL (32-36); Mean Corpuscular Hemoglobin 26 pg (26-34); Mean Corpuscular Volume 83 fL (80-100); Neutrophils Percent Auto 75.2 % (42.0-72.0); Platelet Count* 243 K/uL (140-440); RDW Coefficient of Variation % 14.3 % (11.5-15.5); Red Blood Count 4.33 m/uL (4.00-5.20)
[2024-07-06 06:39] LABS: Slide Review Reflex No
[2024-07-06 06:47] LABS: Sodium* 136 mmol/L (135-149)
[2024-07-06 06:48] LABS: Potassium* 3.9 mmol/L (3.6-5.1)
--- NOTE | 2024-07-06 06:50 | PC.NURSE ---
The pt has been pleasant and cooperative; denied chest pain and short of breath, Spo2 has been in the 90s in RA. The right hip surgical dressing has been C/D/I; The pt has been reporting zero to mild pain to the right hip; pain is managed with ice pack and Pain medications. No numbness or tingling noted to the right leg. Up to the BR with 1-assist and walker. Urinating without any acute distress. IV abx was not given in the previous shift due to the roller clamp not opened, personal lines insurance advisor notified; The morning Pharmacy to retime the medication. The pt is up to chair for breakfast . Appeared without any acute distress ?
[2024-07-06 06:51] LABS: Blood Urea Nitrogen* 11 mg/dL (7-30); Creatinine* 0.6 mg/dL (0.5-1.5); Est. Creatinine Clearance* 47.14; Estimated Glomerular Filt Rate 98 ml/min
[2024-07-06 07:00] VITALS: BP 156/77; PULSE 82; RESP 18; TEMP 37.4; O2SAT 97
[2024-07-06] MEDS: RIVAROXABAN 10 MG TABLET PO (08:23)
[2024-07-06] MEDS: HYDRALAZINE 10 MG TABLET PO (08:23)
[2024-07-06] MEDS: SENNOSIDES 1 TAB TABLET 2 TAB PO (08:24)
--- NOTE | 2024-07-06 08:26 | PM.ORPN ---
Subjective Subjective Time Seen by Provider: 07:50 Date Seen: 07/06/24 Principal diagnosis: Day 1 s/p right total hip arthroplasty Interval history: Jazmyne is doing very well this morning and is resting comfortably in her recliner. She reports no pain at rest and minimal pain with ambulation and transfers. Pain is well managed with rest, ice, Tylenol and Oxycodone. Denies: fever, chills, chest pain, SOB, nausea, vomiting, numbness and tingling distally. Admits to decreased sensation around anterolateral right hip. Patient has not yet had a bowel movement, but admits to flatulence. Patient feels ready to be discharged to home later today. Ortho Exam Narrative Exam Narrative: Incision/Dressing: Dressing appears clean and dry. No drainage present. Mepilex intact. Right hip appears moderately swollen but supple with no obvious erythema, fluctuance or excessive warmth. No ecchymosis or erythematous streaking. Warmth around the wound is appropriate. Ice is being utilized as needed. CMS: Intact distally with 2+ Dorsalis pedis and Posterior Tibial pulses. Confirmed sensation distally. Calf: Bilateral calves are supple, with no swelling, pain, tenderness, erythema, discoloration or coolness to the touch. Constitutional: Patient is alert and oriented x3. Patient is in no acute distress and converses without labored breathing. Patient is able to make decisions and demonstrates good insight. Patient is pleasant and cooperative. Affect is full range and appropriate for the circumstances. Const Vital Signs, click to edit/add: Vital Signs - 24 hr 07/05/24 10:02 07/05/24 11:07 07/05/24 11:15 Temperature 98.5 F Pulse Rate 79 84 73 Respiratory Rate 20 20 20 Blood Pressure 148/85 H 190/94 H 161/92 H Blood Pressure [Left Arm] Pulse Oximetry 97 98 98 Oxygen Delivery Method Room Air Nasal Cannula Nasal Cannula Oxygen Flow Rate 2 2 07/05/24 11:22 07/05/24 14:03 07/05/24 14:05 Temperature 98.4 F 98.4 F Pulse Rate 75 70 66 Respiratory Rate 20 12 21 Blood Pressure 165/90 H 114/76 142/80 H Blood Pressure [Left Arm] Pulse Oximetry 98 95 95 Oxygen Delivery Method Nasal Cannula Room Air Room Air Oxygen Flow Rate 2 07/05/24 14:10 07/05/24 14:15 07/05/24 14:20 Temperature 98.4 F 98.4 F 98.4 F Pulse Rate 70 67 73 Respiratory Rate 12 12 12 Blood Pressure 134/79 144/98 H 163/100 H Blood Pressure [Left Arm] Pulse Oximetry 94 97 97 Oxygen Delivery Method Room Air Room Air Room Air Oxygen Flow Rate 07/05/24 14:25 07/05/24 14:30 07/05/24 14:45 Temperature 98.4 F 98.4 F 97.0 F L Pulse Rate 65 59 L 69 Respiratory Rate 18 12 16 Blood Pressure 156/96 H 163/72 H 162/83 H Blood Pressure [Left Arm] Pulse Oximetry 97 99 100 Oxygen Delivery Method Room Air Room Air Room Air Oxygen Flow Rate 07/05/24 15:00 07/05/24 15:15 07/05/24 15:17 Temperature 97.8 F 97.2 F L Pulse Rate 65 66 Respiratory Rate 16 16 16 Blood Pressure 169/82 H 165/72 H Blood Pressure [Left Arm] Pulse Oximetry 99 97 98 Oxygen Delivery Method Nasal Cannula Nasal Cannula Nasal Cannula Oxygen Flow Rate 1 1 1 07/05/24 15:30 07/05/24 15:45 07/05/24 16:00 Temperature 97.5 F L Pulse Rate 69 65 65 Respiratory Rate 16 16 16 Blood Pressure 178/96 H 167/89 H 179/80 H Blood Pressure [Left Arm] Pulse Oximetry 98 97 100 Oxygen Delivery Method Nasal Cannula Nasal Cannula Nasal Cannula Oxygen Flow Rate 1 1 1 07/05/24 16:30 07/05/24 17:00 07/05/24 17:05 Temperature 97.6 F 97.6 F Pulse Rate 66 70 Respiratory Rate 16 16 16 Blood Pressure 180/80 H 158/94 H Blood Pressure [Left Arm] 180/80 H Pulse Oximetry 99 98 99 Oxygen Delivery Method Nasal Cannula Nasal Cannula Oxygen Flow Rate 1 1 07/05/24 18:00 07/05/24 19:00 07/05/24 19:00 Temperature 98.1 F 97.8 F 98.2 F Pulse Rate 72 82 Respiratory Rate 16 18 16 Blood Pressure 155/72 H 151/73 H Blood Pressure [Left Arm] 180/80 H Pulse Oximetry 95 99 98 Oxygen Delivery Method Room Air Oxygen Flow Rate 1 1 07/05/24 20:00 07/06/24 00:10 07/06/24 00:10 Temperature 98.2 F 98.4 F Pulse Rate 92 Respiratory Rate 16 16 18 Blood Pressure 142/80 H Blood Pressure [Left Arm] 138/72 Pulse Oximetry 98 94 94 Oxygen Delivery Method Room Air Room Air Room Air Oxygen Flow Rate 07/06/24 06:00 Temperature 98.6 F Pulse Rate Respiratory Rate 18 Blood Pressure Blood Pressure [Left Arm] 127/55 L Pulse Oximetry 93 Oxygen Delivery Method Room Air Oxygen Flow Rate Assessment and Plan Assessment and plan (1) Status post right hip replacement: Problem details: DOS: 07/05/24, Dr. Fowler. Status: Acute Assessment and Plan: - Complete 23 hour perioperative antibiotics. - PT/OT consults for education and assistance. - Weight bear as tolerated with a walker for assistance. - Prescribed analgesics as needed. Patient is content with current narcotic medications. Minimize narcotic pain medication use; wean off and discontinue as soon as possible. - Regarding DVT prophylaxis, I spoke with Rebecca regarding her recommendation of either Xarelto x 5 days followed by aspirin 81 mg BID x 25 days OR Xarelto x 30 days. Decision TBD. Patient denies previous history of DVT/PT. Denies smoking history. Patient does have a history of breast cancer and BMI above 40. I also instructed Jazmyne to perform ankle pumps when sedentary and recommend frequent ambulation. - Social consult for discharge planning. - Anticipate patient will be discharged to home later today if the patient remains medically stable, pain is controlled and is safe with ambulation. - Return to clinic in 1 week for a wound check. Mepilex dressing will be removed at this appointment. Remove sooner if dressing becomes saturated. - Return to clinic in [address] Fowler. - Phone Orthopedics with any questions or concerns. [phone]
--- NOTE | 2024-07-06 11:22 | PC.NURSE ---
End of shift report [id number]: Pleasant and cooperative with cares. Pain to right hip well managed with current regimen. Dressing to right anterior hip clean, dry and intact. Non pitting edema to right hip, patient compliant with ice pack and education provided on elevation of extremities at rest. Discharge paperwork complete, denies any questions or concerns upon discharge. All patient belongings accounted for and all discharge paperwork signed. IV to left hand discontinued. Transported via wheelchair to ER doors and assisted into personal vehicle accompanied by son.
--- NOTE | 2024-07-06 16:44 | PC.NURSE ---
Addendum entered by Nessa Toro RN 07/06/24 17:53: Did attempt a second call when no call back received. Original Note: Per Hospitalist request did attempt to call to make sure patient was able to get settled at home and picked up her prescriptions. Left a message on her voicemail. Did also attempt to call her son Ron and left a message to see that things are set up at home. Will attempt one more call before end of my shift if no return call.
== END 2024-07-06 11:07 | disposition home or self-care (01) ==
LOC: OR 09:24 → MEDSURG 09:26
PROVIDERS: PCP Physician Assistant Medical; Visit Provider Orthopaedic Surgery Sports Medicine
PROC: (CPT 27130; principal; 2024-07-05 11:30)
DX: M16.11 Unilateral primary osteoarthritis, right hip (principal); G89.18 Other acute postprocedural pain; E66.01 Morbid (severe) obesity due to excess calories; Z68.41 Body mass index [BMI] 40.0-44.9, adult; I10 Essential (primary) hypertension; C50.811 Malignant neoplasm of overlapping sites of right female breast; Z17.0 Estrogen receptor positive status [ER+]
CPT/HCPCS: 27130; 01214; 36415; 64450; 73501; 76000; 76942; 82565; 84132; 84295; 84520; 85025; 86850; 86900; 86901; 97110; 97116; 97161; 97165; 97530; 97535; A9270; C1776; J0330; J0690; J1100; J1171; J2250; J2405; J2704; J2795; J3010; J3475; J3490; J7120

== ENCOUNTER 2024-08-05 09:15 | Outpatient (RCR) | payer BC, SELFPAY | END 2024-12-03 23:59 | disposition home or self-care (01) | PROVIDERS: PCP Physician Assistant Medical; Visit Provider Orthopaedic Surgery Sports Medicine | DX: Z51.89 Encounter for other specified aftercare (principal); Z47.1 Aftercare following joint replacement surgery; Z96.641 Presence of right artificial hip joint | CPT/HCPCS: 97032; 97110; 97116; 97140; 97162; 97535 ==

== ENCOUNTER 2024-09-02 08:30 | Outpatient (RCR) | payer BC, SELFPAY ==
--- NOTE | 2024-05-24 13:27 | ONC.NURNOTE ---
Met with patient after consultation to discuss plan of care. 1. Radiology will call patient to scheduled DEXA 2. Radiation Oncology referral and supporting records faxed to [facility]. They will call patient to schedule. 3. Patient encouraged to reach out to ortho team to reschedule surgery. Chart note was also sent to Dr. Watson's team. 3. We will wait to schedule follow up until an ortho surgery date has been determined.
--- NOTE | 2024-05-27 14:15 | ONC.NURNOTE ---
Updated plan of care: -Radiation consult 06/01 -DEXA 06/09 -Hip surgery 07/05/2024 -Dr. Betts follow up to discuss endocrine therapy 07/21 Message left with patient confirming this plan. Encouraged patient to call back with questions or concerns.
[2024-09-02 09:46] LABS: Basophils Absolute Auto 0.03 K/uL (0.00-0.30); Basophils Percent Auto 0.5 % (0.0-3.0); Eosinophils Absolute Auto 0.05 K/uL (0.00-0.50); Eosinophils Percent Auto 0.8 % (0.0-7.0); Hematocrit 43.1 % (33.0-51.0); Hemoglobin* 13.9 gm/dL (12.0-16.0); Immature Granulocytes Abs Auto 0.02 K/uL (0.00-0.30); Immature Granulocytes Pct Auto 0.3 %; Lymphocytes Absolute Auto 1.25 K/uL (0.90-2.90); Lymphocytes Percent Auto 20.7 % (20-44); Mean Corpuscular HGB Conc 32 gm/dL (32-36); Mean Corpuscular Hemoglobin 27 pg (26-34); Mean Corpuscular Volume 82 fL (80-100); Monocytes Percent Auto 8.6 % (0.0-11.0); Neutrophils Absolute Auto 4.18 K/uL (1.7-7.0); Neutrophils Percent Auto 69.1 % (42.0-72.0); Platelet Count* 264 K/uL (140-440); RDW Coefficient of Variation % 13.7 % (11.5-15.5); Red Blood Count 5.25 m/uL (4.00-5.20); White Blood Count* 6.05 K/uL (4.50-11.00)
[2024-09-02 09:57] LABS: Albumin* 4.6 g/dL (3.3-5.0); Chloride* 101 mmol/L (96-114); Potassium* 4.1 mmol/L (3.6-5.1); Sodium* 139 mmol/L (135-149)
[2024-09-02 09:59] LABS: Blood Urea Nitrogen* 12 mg/dL (7-30); Creatinine* 0.6 mg/dL (0.5-1.5); Est. Creatinine Clearance* 47.14; Estimated Glomerular Filt Rate 98 ml/min
[2024-09-02 10:00] LABS: Alanine Aminotransferase* 59 U/L (4-35); Alkaline Phosphatase* 99 U/L (40-150); Anion Gap 9 mEq/L (7-15); Aspartate Amino Transferase* 40 U/L (12-35); Bilirubin Total* 0.4 mg/dL (0.1-1.5); Calcium* 9.9 mg/dL (8.4-10.6); Carbon Dioxide* 29 mmol/L (20-32); Glucose* 86 mg/dL (60-115); Magnesium* 1.9 mg/dL (1.5-2.6); Slide Review Reflex No
--- NOTE | 2024-09-02 15:31 | ONC.NURNOTE ---
Addendum entered by Elizabeth Trotter 09/06/24 14:55: Per [facility], request needs to go through [facility] Therapy Planning services. They will review and assign to one of the specialty pharmacies that they contract with. Therapy Plan request and records faxed to [phone]. Phone number to [employer] is [phone]. Patient updated on plan of care as well. Original Note: Ribociclib Rx faxed to [facility]. Will await PA request and co-pay information.
--- NOTE | 2024-09-07 13:52 | W.ED.EKGINT ---
EKG Interpretation EKG Data Attestation: I personally reviewed and interpreted this ECG as follows: Date of EKG Tracin09/02/24 EKG interpretation date: 09/07/24 Prior EKG tracings: available for review Interpretation: EKG is interpreted from above date, this is compared to old EKG from 04/14/2024. Rhythm is sinus, ventricular rate is 82, QRS is 92 milliseconds QT is 358 and QTC is 418. Assessment: Normal EKG and no appreciable change from previous.
--- NOTE | 2024-09-22 10:39 | ONC.NURNOTE ---
Patients insurance ruled Daily as experimental. Letter and NCCN guidelines submitted to Mark for reconsideration. Will await determination. Attempted to reach patient to update her. Left a message requesting return call.
== END 2024-11-20 23:59 | disposition home or self-care (01) ==
LOC: CCIC 08:30
PROVIDERS: Physician Assistant; PCP Physician Assistant Medical; Referring Provider Physician Assistant Medical; Visit Provider Internal Medicine Hematology & Oncology
DX: C50.911 Malignant neoplasm of unspecified site of right female breast (principal); Z17.0 Estrogen receptor positive status [ER+]; Z79.811 Long term (current) use of aromatase inhibitors; R23.2 Flushing; I10 Essential (primary) hypertension; M85.80 Other specified disorders of bone density and structure, unspecified site; M25.561 Pain in right knee; I89.0 Lymphedema, not elsewhere classified; Z96.641 Presence of right artificial hip joint
CPT/HCPCS: 36415; 80053; 83735; 85025; 93005; 93010; 99202; 99205; 99211; 99215; G0463

== ENCOUNTER 2025-03-28 10:11 | Outpatient (CLI) | payer MEDICARE, BC, SELFPAY ==
--- NOTE | 2025-03-28 10:45 | CRLHL7_ITS ---
For Patients: As a result of the Cures Act, medical imaging exams and procedure reports are released immediately into your electronic medical record. You may view this report before your referring provider. If you have questions, please contact your health care provider. COMPARISON: 03/25/2024, 04/28/2018, 02/13/2017 TECHNIQUE: Digital mammogram in CC and MLO projections including computer-aided detection (CAD) and tomosynthesis. BREAST COMPOSITION: There are scattered areas of fibroglandular density. FINDINGS: No suspicious findings. ASSESSMENT: BI-RADS 2 Benign RECOMMENDATION: Annual screening mammogram. A lay language report of this examination will be provided to the patient. Dictated by: Arden Albright MD @ 03/29/2025 09:36:25 (Electronically Signed)
== END 2025-03-28 10:12 | disposition home or self-care (01) ==
LOC: MAMMO 10:15
PROVIDERS: PCP Physician Assistant Medical; Visit Provider Physician Assistant Medical
DX: Z12.31 Encounter for screening mammogram for malignant neoplasm of breast (principal)
CPT/HCPCS: 77063; 77067